=== PATIENT | female | born 1980 | race Caucasian/White ===

== ENCOUNTER 2019-04-10 20:46 | Emergency (ER) | payer SELFPAY ==
[~2019-04-10] VITALS: Ht 165.1 cm; Wt 100.0 kg
[~2019-04-10 20:46] MED LIST: BACTRIM DS 8001 TAB PO; LOMOTIL 0.025 M1 TAB PO; LORTAB 7.5/5001 TAB PO; NO HOME MEDICATIONS; NORCO 325 MG-7.1 TAB PO; PEPCID 20MG TAB20 MG PO; PHENERGAN 25 TA25 MG PO; PRENATAL1 TA1 PO; PYRIDIUM 100MG100 MG PO; [UNRECOGNIZED DRUG - OTHER]
[2019-04-10 20:50] VITALS: BP 129/68; TEMP 97.7
[2019-04-10 21:43] VITALS: PULSE 83
== END 2019-04-10 21:44 | disposition home or self-care (01) ==
LOC: COL.ER 20:46
DX: M79.662 Pain in left lower leg (principal); X50.1XXA Overexertion from prolonged static or awkward postures, initial encounter

== ENCOUNTER 2019-11-04 14:21 | Emergency (ER) | payer SELFPAY ==
[~2019-11-04] VITALS: Ht 165.1 cm; Wt 102.3 kg
[2019-11-04 15:29] LABS: STREP SCREEN NEGATIVE
[2019-11-04 16:04] LABS: ALBUMIN 4.6 gm/dL (3.5-5.0); BILIRUBIN,TOTAL 0.4 mg/dL (0.0-1.0); CREATININE, serum 0.76 (0.52-1.25); POTASSIUM 3.7 mmol/L (3.4-5.0); TOTAL PROTEIN 8.2 gm/dL (6.4-8.2)
[2019-11-04 16:05] LABS: BASO % 0.2 % (0.0-2.0); EOS # 0.1 (0.0-0.7); EOS % 1.3 % (0-4.0); GRAN # 2.9 (1.4-6.5); GRAN % 55.7 % (42.2-75.2); HEMATOCRIT 47.8 % (37.0-47.0); HEMOGLOBIN 15.8 g/dl (12.5-16.0); LYMPH # 1.4 (1.2-3.4); LYMPH % 27.6 % (20.0-51.0); MEAN CELL VOLUME 87 fl (80.0-100.0); MEAN CORPUSCULAR HEMOGLOBIN 29 pg (27.0-31.0); MEAN CORPUSCULAR HGB CONC 33 g/dl (33.0-37.0); MEAN PLATELET VOLUME 10.2 fl (7.4-10.4); MONO # 0.8 (0.1-0.6); MONO % 14.8 % (1.7-9.3); PLATELET COUNT 270 K/mm3 (130-400); RED BLOOD COUNT 5.48 M/mm3 (4.10-5.30); REDCELL DISTRIBUTION WIDTH-CV 12.8 % (11.5-14.5)
[2019-11-04 16:29] LABS: COLLECTION METHOD CLEAN CATCH
[2019-11-04 16:44] LABS: MUCOUS Present /lpf; PH 6 (5-8); SQUAMOUS EPITHELIAL 0-2 /hpf; URINE APPEARANCE Hazy; URINE BACTERIA None Seen /hpf; URINE BILIRUBIN Negative (NEGATIVE); URINE BLOOD 1+ (NEGATIVE); URINE COLOR Yellow; URINE GLUCOSE Negative (NEGATIVE); URINE KETONE Negative (NEGATIVE); URINE LEUKOCYTE ESTERASE Trace (NEGATIVE); URINE NITRATE Negative (NEGATIVE); URINE PROTEIN(semi-quant) Negative (NEGATIVE); URINE RBC 0-2 /hpf; URINE UROBILINOGEN Negative (NEGATIVE)
[2019-11-04 17:17] VITALS: TEMP 98.8
[2019-11-04 18:10] VITALS: BP 113/78; PULSE 93
== END 2019-11-04 18:10 | disposition home or self-care (01) ==
LOC: COL.ER 14:21
PROVIDERS: Family Medicine; Physician Assistant
DX: J11.1 Influenza due to unidentified influenza virus with other respiratory manifestations (principal)
CPT/HCPCS: J0780; J1200; J1885; J7030

== ENCOUNTER 2021-04-27 16:08 | Emergency (ER) | payer BC ==
[~2021-04-27] VITALS: Ht 165.1 cm; Wt 109.1 kg
[2021-04-27 16:19] VITALS: TEMP 97.8
[2021-04-27] MEDS ORDERED: CIPRO 500MG TA500 MG PO (16:39)
[2021-04-27] MEDS ORDERED: NORCO 325 MG-51 TAB PO (16:39)
[2021-04-27 17:08] VITALS: BP 113/68; PULSE 86
== END 2021-04-27 17:13 | disposition home or self-care (01) ==
LOC: COL.ER 16:08
DX: S90.812A Abrasion, left foot, initial encounter (principal); W17.89XA Other fall from one level to another, initial encounter